=== PATIENT | female | born 2000 | race African-American/Black ===

== ENCOUNTER 2020-06-04 14:02 | Emergency (ER) | payer OTHER ==
[~2020-06-04] VITALS: Ht 152.4 cm; Wt 50.4 kg
[2020-06-04] MEDS ORDERED: TETRACAINE 0.5% OPHTH SOLUTION 4ML BOTTLE. OU ONE (14:30)
[2020-06-04] MEDS ORDERED: FLUORESCEIN 1MG EYE STRIP. OU ONE (14:30)
[2020-06-04 14:41] VITALS: BP 123/71
--- NOTE | 2020-06-04 15:29 | PHYS DOC ---
Past History Past Medical History: No Pertinent History Past Surgical History: Appendectomy Alcohol Use: None General Adult EDM: Chief Complaint: EYE PROBLEMS HPI: HPI: 19-year-old female past medical history significant for allergies (receives injections), resents to the ED with complaints of clear increased watery discharge with white specks causing her to see "eye floaters," stating she pulls out thin white strings. Reports associated eye itching and hard crusty discharge of her eyelashes for the past 2 weeks. Patient states she recently got a new cat was not vaccinated is concerned that she has worms in her eyes. No recent travel outside the country. States she also has multiple lesions on her face, has never had acne and she is able to push out white material from these lesions. No fluid filled lesions. Not wear glasses or lenses. Does not know her baseline vision. Denies any blunt trauma to the eye or any vision loss. Review of Systems: Review of Systems: Constitutional: Denies fever or chills Eyes: Denies change in visual acuity or vision loss, no red painful eye HENT: Denies nasal congestion or sore throat Respiratory: Denies cough or shortness of breath Cardiovascular: Denies chest pain or edema or hemoptysis GI: Denies abdominal pain, nausea, vomiting, bloody stools or diarrhea : Denies dysuria Musculoskeletal: Denies back pain or joint pain Integument: Denies rash Neurologic: Denies headache, focal weakness or sensory changes Endocrine: Denies polyuria or polydipsia Lymphatic: Denies swollen glands Psychiatric: Denies depression or anxiety Heart Score: Risk Factors: Risk Factors: DM, Current or recent (<one month) smoker, HTN, HLP, family history of CAD, obesity. Risk Scores: Score 0 - 3: 2.5% MACE over next 6 weeks - Discharge Home Score 4 - 6: 20.3% MACE over next 6 weeks - Admit for Clinical Observation Score 7 - 10: 72.7% MACE over next 6 weeks - Early Invasive Strategies Current Medications: Current Meds: Current Medications Medications (Trade) Dose Ordered Sig/Kash Start Time Stop Time Status Last Admin Dose Admin Fluorescein Sodium (Ful-Zeina 1mg) 1 strip 1X ONCE 06/04/20 14:30 06/04/20 14:47 DC 06/04/20 14:30 1 STRIP Tetracaine HCl (Tetracaine) 1 drop 1X ONCE 06/04/20 14:30 06/04/20 14:47 DC 06/04/20 14:30 1 DROP Allergies: Allergies: Allergies Coded Allergies Type Severity Reaction Last Updated Verified No Known Drug Allergies 06/04/20 No Physical Exam: PE: Constitutional: Well developed, well nourished, no acute distress, non-toxic appearance. [] HENT: Normocephalic, atraumatic, bilateral external ears normal, oropharynx moist, no oral exudates or erythema, nose normal, multiple lesions over face where epidermis has been removed-skin picking? Eyes: EOMI, conjunctiva normal - no blepharitis, increased clear discharge, no fluorescein uptake on Ayala lamp exam, no dendritic lesions, no Yann sign, no vision loss, allergic shiners present bl, no mobile parasitic lesions, no photophobia, tolerated exam well Neck: Normal range of motion, supple, no stridor. [] Cardiovascular: S1-S2 present Lungs & Thorax: Speaking in full sentences, bilateral equal chest rise Skin: Warm, dry, no erythema, no rash. [] Back: No tenderness, no CVA tenderness. [] Extremities: No tenderness, no cyanosis, no clubbing, ROM intact, no edema. [] Neurologic: Alert and oriented X 3, normal motor function, normal sensory function, no focal deficits noted. [] Psychologic: Affect normal, judgement normal, mood normal. [] Current Patient Data: Vital Signs: Vital Signs Date Time Temp Pulse Resp B/P (MAP) Pulse Ox O2 Delivery O2 Flow Rate FiO2 06/04/20 14:41 98.1 109 18 123/71 (88) 100 Room Air EKG: EKG: [] Radiology/Procedures: Radiology/Procedures: [] Course & Med Decision Making: Course & Med Decision Making Pertinent Labs and Imaging studies reviewed. (See chart for details) Concern for conjunctivitis likely allergic in nature but will treat for bacterial. Would send exam with no dendritic lesions or ulcers, low suspicion for GC infection. No vesicular lesions resembling shingles. Patient with no vision loss. Will treat with Polytrim and have patient follow-up with dermatology regarding lesions on her face. Was advised not to pick at her skin -I suspect she's skin picking or removing white comedomes. Strict ED return precautions were given for rash or vision loss or fever. Encouraged urgent outpatient follow-up with PMD and dermatology. Life-threatening processes were considered but are low suspicion at this time, given history and physical exam. Pt was educated on all prescription medications and adverse effects. All patient's questions were answered and pt was stable at time of discharge. Life/limb-threatening differential includes but is not limited to, acute angle-closure glaucoma, uveitis, corneal vision, foreign body, globe rupture, episcleritis, corneal ulcer, hyphema or empyema, orbital cellulitis, orbital hematoma, lens dislocation or orbital wall fracture or life threatening rash I spoken with the patient and her caregivers. I explained the patient's condition, diagnoses and treatment plan based on the information available to me at this time. I have answered the patient and her caregiver's questions and addressed any concerns. The patient and her caregivers have a good understanding of patient's diagnosis, condition and treatment plan as can be expected at this point. Vital signs have been stable. Patient's condition is stable and appropriate for discharge from the emergency department. Patient will pursue further outpatient evaluation with primary care physician or other designated or consulting physician as outlined in the discharge instructions. The patient and/or caregivers are agreeable to this plan of care and follow-up instructions have been explained in detail. The patient and/or caregivers have received these instructions in written form and have expressed an understanding of the discharge instructions. The patient and/or caregivers are aware that any significant change of condition or worsening of symptoms should prompt immediate return to this or the closest emergency department or call to [id number] Disclaimer: Dariana Disclaimer: This electronic medical record was generated, in whole or in part, using a voice recognition dictation system. Departure Departure: Impression: Primary Impression: Allergic conjunctivitis Additional Impression: Multiple lesions of face Disposition: HOME/RESIDENCE PRIOR TO ADM Condition: STABLE Referrals: PCP,NO (PCP) Patient Instructions: Allergic Conjunctivitis, Bacterial Conjunctivitis Additional Instructions: [facility]-call to schedule appointment for facial lesions Address: [address] [place] [address] EMERGENCY DEPARTMENT GENERAL DISCHARGE INSTRUCTIONS Thank you for coming to [facility] (ED) today and trusting us with you care. We trust that you had a positivie experience in our Emergency Department. If you wish to speak to the department management, you may call the director at [phone]. YOUR FOLLOW UP INSTRUCTIONS ARE FOLLOWS: 1. Do you have a private Doctor? If you do not have a private doctor, please ask for a resource list of physicians or clinics that may be able to assist you with follow up care. 2. The Emergency Physician has interpreted your x-rays. The X-Ray specialist will also review them. If there is a change in the findings, you will be notified in 48 hours when at all possible. 3. A lab test or culture has been done, your results will be reviewed and you will be notified if you need a change in treatment. ADDITIONAL INSTRUCTIONS AND INFORMATION: 1. Your care today has been supervised by a physician who is specially trained in emergency care. Many problems require more than one evaluation for a complete diagnosis and treatment. We recommend that you schedule your follow up appointment as recommended to ensure complete treatment of you illness or injury. If you are unable to obtain follow up care and continue to have a problem, or if your condition worsens, we recommend that you return to the ED. 2. We are not able to safely determine your condition over the phone nor are we able to give sound medical advice over the phone. For these safety reasons, if you call for medical advice we will ask you to come to the ED for further evaluation. 3. If you have any questions regarding these discharge instructions please call the ED at [phone]. SAFETY INFORMATION: In the interest of safety, wellness, and injury prevention; we encourage you to wear your sealbelt, if you smoke; quite smoking, and we encourage family to use a protective helmet for bicycling and other sporting events that present an increased risk for head injury. IF YOUR SYMPTOMS WORSEN OR NEW SYMPTOMS DEVELOP, OR YOU HAVE CONCERNS ABOUT YOUR CONDITION; OR IF YOUR CONDITION WORSENS WHILE YOU ARE WAITING FOR YOUR FOLLOW UP APPOINTMENT; EITHER CONTACT YOUR PRIMARY CARE DOCTOR, THE PHYSICIAN WHOSE NAME AND NUMBER YOU WERE GIVEN, OR RETURN TO THE ED IMMEDIATELY. Scripts Polymyxin B Sulf/Trimethoprim (POLYTRIM EYE DROPS) 10 Ml Drops 1 DROP EACHEYE Q6HRS for eye discharge for 5 Days, #10 ML Prov: MAMI KENNEDY DO 06/04/20 MAMI KENNEDY DO Jun 04, 2020 15:29
[2020-06-04] MEDS ORDERED: POLY10DR EACHEYE (15:38)
== END 2020-06-04 15:50 | disposition home or self-care (01) ==
LOC: ER 14:02
DX: H10.13 Acute atopic conjunctivitis, bilateral (principal); L98.8 Other specified disorders of the skin and subcutaneous tissue
CPT/HCPCS: 99283